=== PATIENT | female | born 1980 | race Hispanic/Latino ===

== ENCOUNTER 2016-12-29 15:53 | Emergency (ER) | payer MEDICARE ==
[2016-12-29 16:36] LABS: Urine Drugs of Abuse Note Disclamer
[2016-12-29 16:50] LABS: Bilirubin,Urine NEG (Negative); Blood,Urine MOD (Negative); Ketones,Urine NEG (Negative); Leukocyte Esterase,Urine NEG (Negative); Nitrite,Urine NEG (Negative); Protein,Urine <15 mg/dL mg/dL (Negative); RBC,Urine < 1.0 /HPF (0.0-6.0); Urobilinogen,Urine < 2.0 mg/dL (<2.0); WBC,Urine < 1.0 /HPF (0.0-6.0)
[2016-12-29 17:10] LABS: Basophils % (Auto) 0.5 % (0.0-1.8); Eosinophils % (Auto) 0.6 % (0.0-4.3); Hematocrit 39.8 % (30.3-42.9); Hemoglobin 13.1 gm/dl (10.1-14.3); Mean Corpuscular HGB Conc 33 % (30-34); Mean Corpuscular Hemoglobin 30 pg (28-32); Mean Corpuscular Volume 92 fl (79-97); Platelet Count 319 K/mm3 (140-440); Red Blood Count 4.31 M/mm3 (3.65-5.03); Red Cell Distribution Width 13.9 % (13.2-15.2); White Blood Count 7.8 K/mm3 (4.5-11.0)
[2016-12-29 17:11] LABS: Anion Gap 17 mmol/L; BUN/Creatinine Ratio 7; Blood Urea Nitrogen 5 mg/dL (7-17); Calcium 8.9 mg/dL (8.4-10.2); Carbon Dioxide 27 mmol/L (22-30); Chloride 103.3 mmol/L (98-107); Glucose 90 mg/dL (65-100); Potassium 3.7 mmol/L (3.6-5.0); Sodium 144 mmol/L (137-145)
--- NOTE | 2016-12-29 18:01 | Emergency Department Report ---
HPI - General Chief Complaint: Overdose Time Seen by Provider: 12/29/16 17:48 - HPI HPI: This is a 36-year-old female who presents to the emergency department with complaint of suicidal ideations, depression and a suicide attempt by trying to overdose on 30 pills of Trentelix, an antidepressant. The patient has a known history of depression and these are her prescribed medications. She says that she is in a bed placement now as her father recently . She went to [employer] today in the hopes of getting a car alone but was denied. She does not feel that there is anyone who can help her with her current situation and took these pills at the car dealership. She says that she vomited some of these pills up. She started having some nausea at first but that has since resolved and she does not have any current physical complaints. She denies any illicit drug use, concurrent alcohol use and denies being a tobacco smoker. ED Past Medical Hx - Past Medical History Hx Psychiatric Treatment: Yes (depression) - Surgical History Hx Appendectomy: Yes - Social History Smoking Status: Never Smoker Substance Use Type: None - Medications Home Medications: Home Medications Medication Instructions Recorded Confirmed Last Taken Type Amoxicillin 500 mg PO Q6H 12/29/16 12/29/16 Unknown History Brexpiprazole [Rexulti] 3 mg PO DAILY 12/29/16 12/29/16 Unknown History Fluticasone [Flonase] 1 spray NS QDAY 12/29/16 12/29/16 Unknown History Levothyroxine [Synthroid] 125 mcg PO QAM 12/29/16 12/29/16 Unknown History Mirtazapine [Remeron] 60 mg PO QHS 12/29/16 12/29/16 Unknown History Norgestimate-Ethinyl Estradiol 10 mg PO DAILY 12/29/16 12/29/16 Unknown History [Trinessa Tablet] ED Review of Systems ROS: Stated complaint: MH EVALUATION Other details as noted in HPI Comment: All other systems reviewed and negative Constitutional: denies: chills, fever Eyes: denies: eye pain, eye discharge, vision change ENT: denies: ear pain, throat pain Respiratory: denies: cough, shortness of breath, wheezing Cardiovascular: denies: chest pain, palpitations Gastrointestinal: nausea. denies: abdominal pain Genitourinary: denies: urgency, dysuria, discharge Musculoskeletal: denies: back pain, joint swelling, arthralgia Neurological: denies: headache, weakness, paresthesias Psychiatric: suicidal thoughts. denies: auditory hallucinations, visual hallucinations, homicidal thoughts Physical Exam - Physical Exam Vital Signs: Vital Signs 12/29/16 16:14 Temperature 98.3 F Pulse Rate 85 Respiratory 18 Rate Blood Pressure 104/63 O2 Sat by Pulse 100 Oximetry Physical Exam: GENERAL: The patient is well-developed well-nourished. HENT: Normocephalic. Atraumatic. Patient has moist mucous membranes. EYES: Extraocular motions are intact. Pupils equal reactive to light bilaterally. NECK: Supple. Trachea is midline. CHEST/LUNGS: Clear to auscultation. There is no respiratory distress noted. HEART/CARDIOVASCULAR: Regular. There is no tachycardia. There is no gallop rub or murmur. ABDOMEN: Abdomen is soft, nontender. Patient has normal bowel sounds. There is no abdominal distention. SKIN: Skin is warm and dry. NEURO: The patient is awake, alert, and oriented. The patient is cooperative. The patient has no focal neurologic deficits. The patient has normal speech. MUSCULOSKELETAL: There is no tenderness or deformity. There is no limitation range of motion. There is no evidence of acute injury. ED Course Vital Signs 12/29/16 16:14 Temperature 98.3 F Pulse Rate 85 Respiratory 18 Rate Blood Pressure 104/63 O2 Sat by Pulse 100 Oximetry - Consultations Consultation #1: Poison control was contacted and says that the medication has a peak of 7-11 hours with a long half life. It can cause nausea, vomiting, upset stomach. Other symptoms could include altered mental status and rigidity. They recommend observation for 8-10 hours. 12/29/16 18:00 ED Medical Decision Making - Lab Data Result diagrams: 12/29/16 16:43 12/29/16 16:43 - EKG Data -: EKG Interpreted by Me EKG shows normal: sinus rhythm, axis, intervals, QRS complexes, ST-T waves Rate: normal - EKG Data When compared to previous EKG there are: previous EKG unavailable Interpretation: normal EKG - Medical Decision Making 36-year-old female presents with depression and suicide attempt by overdose of antidepressant. She has been reevaluated multiple times for multiple hours and has remained stable. At this point she has no physical complaints. Labs are unremarkable. EKG does not show any signs of ST elevation [place], ischemia or dysrhythmia or any prolonged intervals. She has been made a 1013 secondary to her suicide attempt. I feel that this patient is medically cleared for psychiatric placement. - Differential Diagnosis depression, bipolar disorder, anticholinergic syndrome Critical Care Time: No Critical care attestation.: If time is entered above; I have spent that time in minutes in the direct care of this critically ill patient, excluding procedure time. ED Disposition Clinical Impression: Suicide attempt by drug ingestion Qualifiers: Encounter type: initial encounter Qualified Code(s): T50.902A - Poisoning by unspecified drugs, medicaments and biological substances, intentional self-harm , initial encounter Overdose of antidepressant Qualifiers: Encounter type: initial encounter Injury intent: intentional self-harm Qualified Code(s): T43.202A - Poisoning by unspecified antidepressants, intentional self-harm, initial encounter Depression Qualifiers: Depression Type: unspecified Qualified Code(s): F32.9 - Major depressive disorder, single episode, unspecified Disposition: [id number]/[id number] PSY HOSP/PSY UNIT Is pt being admited?: No Condition: Stable Referrals: PRIMARY CARE, [Primary Care Provider] - 3-5 Days Time of Disposition: 20:40
[2016-12-29 22:23] VITALS: BP 97/63
== END 2016-12-29 23:30 ==
LOC: EEVIPCON 15:53 → ED 15:53
DX: T43.202A Poisoning by unspecified antidepressants, intentional self-harm, initial encounter (principal); F32.9 Major depressive disorder, single episode, unspecified; Y92.9 Unspecified place or not applicable
CPT/HCPCS: 36415; 80048; 80307; 81001; 84703; 85025; 93005; 93010; 99285; G0480; 80320